=== PATIENT | female | born 1975 ===

== ENCOUNTER 2025-06-05 05:57 | Day surgery (SDC) | payer BC, SELFPAY ==
[2025-05-30 09:02] LABS: Hematocrit 37.4 % (37.0-47.0); Hemoglobin 11.5 g/dL (12.0-16.0); Mean Corp Hgb Conc. 30.7 g/dL (33.0-37.0); Mean Corpuscular Volume 77.0 fL (81.0-99.0); Platelet Count 289 10^3/uL (130-400); Red Cell Dist. Width 13.2 % (11.5-14.5)
[2025-05-30 09:49] LABS: Blood Urea Nitrogen 14 mg/dl (7-17); Calcium 9.0 mg/dl (8.4-10.2); Carbon Dioxide 28 mmol/L (22-30); Chloride 104 mmol/L (98-107); Glucose 103 mg/dl (70-99); Potassium 4.4 mmol/L (3.5-5.1); Sodium 136 mmol/L (135-145); eGFR > 60.00
[2025-05-30 14:09] VITALS: BMI 36.0
--- NOTE | 2025-05-30 15:33 | PTCARENOTE ---
Abnormal ECG done 05/30/[address] Whitehead, no further interventions requested.
[2025-06-05] VITALS (10 sets, daily range): BP systolic 125–163; BP diastolic 75–97; BMI 36.0
[2025-06-05] MEDS: CELEBREX 200 MG PO (06:27)
[2025-06-05] MEDS: TYLENOL 1000 MG PO (06:27)
--- NOTE | 2025-06-07 18:47 | OR.RPT ---
Operative Report
Operative Report
OPERATIVE REPORT
Patient Name: Christiane Horton

Date of Surgery: 06/05/2025
Surgeon: Jay Jay Joseph DPM
Assistants: Jay Jay Cifuentes DPM
Preoperative Diagnosis:
Right insertional Achilles tendinitis with partial tendon tear
Right posterior calcaneal exostosis
Postoperative Diagnosis:
Same as preoperative
Procedures Performed:
Right Achilles tendon detachment, debridement, and repair with reattachment (CPT 47039)
Right retrocalcaneal exostectomy (CPT 22981)
Anesthesia: General anesthesia with 20ccs of local infiltration of 0.25% Marcaine plain
Hemostasis: Pneumatic thigh tourniquet which remained inflated to 300mmHg for the entirety of the procedure
Estimated Blood Loss: Minimal (<50 mL)
Materials Used:
Ar[employer] SpeedBridge system (4 anchors)
2-0 Vicryl
3-0 Vicryl
3-0 Nylon
Specimens: None
Complications: None
Indications for Surgery:
The patient is a 49 year old female who presented with chronic right posterior heel pain consistent with insertional Achilles tendinitis. MRI demonstrated significant Achilles tendinitis at its insertion along with significant retrocalcaneal and
posterior calcaneal exostosis. The patient had undergone extensive conservative management including immobilization, physical therapy, shoe and activity modification, and anti-inflammatory therapy without relief. Surgical intervention was therefore
indicated for definitive treatment. We reviewed all risks, benefits, and alternatives of surgical management and patient consented for surgical intervention.
Description of Procedure:
After proper identification of the patient and surgical site, the patient was brought to the operating room and placed in the prone position on the operating table. A pneumatic thigh tourniquet was applied and inflated following exsanguination of
the limb. The right lower extremity was then prepped and draped in the usual sterile manner.
A curvilinear incision was made over the posterior aspect of the right heel, biased medially over the Achilles tendon insertion and curving towards the midsubstance of the tendon. Blunt dissection was carried down carefully through subcutaneous
tissue with care taken to avoid all neurovascular structures with hemostasis achieved via electrocautery. The paratenon was identified and incised longitudinally, exposing the distal Achilles tendon. The tendon was noted to be severely thickened and
degenerative with partial tearing at its insertion.
The distal aspect of the Achilles tendon was sharply detached from the calcaneus and reflected proximally to allow exposure of the retrocalcaneal bursa and posterior calcaneal prominence. There were cuffs of the Achilles tendon insertion maintained
medially and laterally.
Attention was directed to the posterior calcaneus, where a large bony prominence consistent with a retrocalcaneal exostosis was identified. Using a sagittal saw and rongeur, the retrocalcaneal and posterior calcaneal exostoses were resected to a
smooth contour. This was confirmed on fluoroscopy. The area was irrigated thoroughly with sterile saline.
The Achilles tendon was inspected, and all devitalized, degenerated, and frayed tissue was sharply debrided until only healthy, viable tendon remained. The tendon edges were refreshed.
The footprint of the Achilles insertion on the posterior calcaneus was prepared with curettes and rongeurs to expose healthy cancellous bone. Two medial and two lateral Arthrex SwiveLock anchors (SpeedBridge construct) were placed in standard
fashion, creating a double-row configuration. FiberTape sutures were passed through the distal tendon and secured distally, providing broad compression of the tendon to its anatomic insertion. Excellent fixation was confirmed with no gapping upon
passive ankle dorsiflexion and plantarflexion.
The surgical site was copiously irrigated with sterile saline. The Achilles tendon and paratenon were reapproximated using 2-0 Vicryl suture. Subcutaneous tissue was closed with 3-0 Vicryl, and the skin was closed with interrupted 3-0 Prolene
sutures. Sterile dressings were applied, and the extremity was placed in a well-padded posterior splint with the ankle in slight plantarflexion.
The tourniquet was deflated, and immediate hyperemia was noted to all digits. The patient was aroused from anesthesia and brought to the recovery area in good condition.
Postoperative Plan:
Non-weightbearing to the operative extremity
Keep dressing clean, dry, and intact
Follow-up in 10�14 days for wound check and suture removal
Transition to CAM boot with heel wedge as healing progresses
Gradual physical therapy program per protocol for Achilles repair
== END 2025-06-05 12:30 | disposition home or self-care (01) ==
LOC: SDS 05:57
PROVIDERS: ATTENDING PHYSICIAN Student in an Organized Health Care Education/Training Program; FAMILY PHYSICIAN Family Medicine
DX: M76.61 Achilles tendinitis, right leg (principal); M89.9 Disorder of bone, unspecified
CPT/HCPCS: 27650; 80048; 85027; 93005